=== PATIENT | female | born 1995 | race African-American/Black ===

== ENCOUNTER 2021-09-25 17:53 | Emergency (ER) | payer OTHER ==
[~2021-09-25] VITALS: Ht 154.9 cm; Wt 67.1 kg
[2021-09-25] MEDS ORDERED: CEPHALEXIN500 M1 PO (20:15)
[2021-09-25] MEDS ORDERED: SEPTDS PO (20:15)
== END 2021-09-25 20:40 | disposition home or self-care (01) ==
LOC: ED 17:53
DX: L02.416 Cutaneous abscess of left lower limb (principal)